=== PATIENT | male | born 1995 | race African-American/Black ===

== ENCOUNTER 2021-05-05 11:51 | Emergency (ER) | payer OTHER ==
[~2021-05-05] VITALS: Ht 180.3 cm; Wt 81.6 kg
--- NOTE | 2021-05-05 11:51 | NUR ---
PT BIB SELF C/O SI "I WANT TO JUMP OFF A BRIDGE" PT IS AAOX4, NOT IN RESPIRATORY DISTRESS, V/S STABLE, KEPT RESTED AND COMFORTABLE. SITTER AT BEDSIDE. WILL CONTINUE TO MONITOR.
--- NOTE | 2021-05-05 12:07 | NUR ---
called security for wanding
--- NOTE | 2021-05-05 12:07 | NUR ---
urine collected and sent to lab.
[2021-05-05 12:25] LABS: BASOPHILS % (AUTO) 0.5 % (0.0-2.0); EOSINOPHILS % (AUTO) 1.3 % (0.0-6.0); HEMATOCRIT 48 % (39-51); HEMOGLOBIN 15.7 g/dL (13.5-17.5); LYMPHOCYTES # (AUTO) 1.8 K/uL (0.8-4.8); LYMPHOCYTES % (AUTO) 21.5 % (20.0-44.0); MEAN CORPUSCULAR HGB CONC 33 g/dl (31.0-36.0); MEAN CORPUSCULAR VOLUME 93 fL (80-96); MONOCYTES # (AUTO) 0.6 K/uL (0.1-1.30); MONOCYTES % (AUTO) 6.6 % (2.0-12.0); NEUTROPHILS % (AUTO) 70.1 % (43.0-81.0); PLATELET COUNT (AUTO) 239 K/uL (150-450); RED BLOOD CELL COUNT(AUTO) 5.16 MIL/uL (4.5-6.0); WHITE BLOOD COUNT (AUTO) 8.6 K/uL (4.3-11.0)
[2021-05-05 12:33] LABS: BILIRUBIN,URINE Negative (NEGATIVE); COLOR,URINE YELLOW (YELLOW); LEUKOCYTE ESTERASE ,URINE Negative (NEGATIVE); NITRITE, URINE Negative (NEGATIVE); PROTEIN,URINE Negative (NEGATIVE); UGLUCOSE Negative (NEGATIVE); UROBILINOGEN,URINE 0.2 EU/dL (0.2)
[2021-05-05 12:45] LABS: ALANINE AMINOTRANSFERASE 16 U/L (12-78); ALBUMIN 4.4 g/dL (3.4-5.0); ALCOHOL, BLOOD < 3 mg/dL (0-0); ALKALINE PHOSPHATASE 104 U/L (46-116); ASPARTATE AMINOTRANSFERASE 17 U/L (15-37); BILIRUBIN,DIRECT 0.1 mg/dL (0.0-0.2); BILIRUBIN,TOTAL 0.4 mg/dL (0.2-1.0); CALCIUM, SERUM 9.3 mg/dL (8.5-10.1); CARBON DIOXIDE 30 mmol/L (21-32); CHLORIDE 102 mmol/L (98-107); CREATININE 1.1 mg/dL (0.6-1.3); GLUCOSE 94 mg/dL (74-106); POTASSIUM 3.8 mmol/L (3.5-5.1); SODIUM SERUM 141 mmol/L (136-145); UREA NITROGEN, BLOOD 12 mg/dL (7-18)
[2021-05-05 12:46] LABS: ACETAMINOPHEN < 10 ug/ml (10-30)
[2021-05-05 12:47] LABS: BACTERIA,URINE Rare /HPF (None Seen); SQUAMOUS EPITHELIAL CELL,UR 0-2 /HPF (None Seen); WBC,URINE 0-2 /HPF (0-3)
--- NOTE | 2021-05-05 14:40 | NUR ---
"Automatic Cigar Wrapper Tender consult: Automatic Cigar Wrapper Tender consult requested for suicidal ideation. Patient is a 25-year-old, male. SW met with patient at his bedside in the emergency department. Patient was alert and oriented x4. Patient was calm and watching television. Per chart, patient was brought in by self on 05/05/21, presented with suicidal ideation and stated that he wanted to jump off a bridge. Patient stated that he is currently homeless. Patient stated that he became homeless within this month. Patient reported that he has stayed in shelters in the past. Patient stated that he receives General [employer] and SSI as a source of income. Patient reported occasional substance use which includes, marijuana. SW assessed patients history of mental illness and patient stated that he has a history of Schizophrenia. Patient reported that he experiences auditory hallucinations and has experienced them while in the emergency department. Patient described auditory hallucinations as, voices telling me to go here or go there. Patient stated that he is currently experiencing suicidal and homicidal ideation. Patient reported no plan for suicidal ideation. Patient reported I want to hit this derik on the street who was so mean to me. SW offered patient homeless and mental health resources and patient accepted the resources, thanking SW. Patient signed the homeless waiver and SW filed the waiver in the patients chart. Patient requested to be referred to an inpatient psychiatric hospital for voluntary admission. SW will follow up and fax clinicals to [facility], , for review. PLAN: SW will fax clinicals to [facility] for review. SW will remain available as needed. Year-round shelters: [facility] [address], [place] [id number] ; [facility] [address] [place] [address]; [facility] [id number] [facility] [address] SPA 4 | [facility] [place] Provider: [facility] Address: [address], [address] # of Beds: 48 Population Served: [facility] Provider: [facility] Serve Address: [address] [facility] [facility], [address] # of Beds: 73 Population Served: [facility] 6 | [facility] Provider: [facility] Address: [address] [facility], [address] # of Beds: 63 Population Served: [facility] 3 | [facility] Provider: [facility] [place] Address: [address] [facility], [address] # of Beds: 75 Population Served: [facility] 8 | [facility] Provider: [facility] [place] Address: [address] [place], [address] # of Beds: 80 Population Served: [facility] S[facility] 1 | [facility] Provider: [facility] [place] Address: [address] [place] [address], [address] # of Beds: 85 Population Served: [facility] SPA 2 | [facility] Provider: [facility] Address: Confidential (please call for location) # of Beds: 52 Population Served: [facility] 4 | [facility] Provider: [facility] Address: [address] [facility], [address] # of Beds: 49 Population Served: [facility] Provider: [facility] To Serve Address: [address] [place] [address], [address] # of Beds: 27 Population Served: [facility] Hygiene: [facility]: [address] [address] ; [facility] [address] [facility] ; [facility] [address] Sah[address] Wagner . Food Resources: [place] [employer] [facility] at [facility]- [address] [facility]; Meet Each Need with Dign[facility] ([facility]) [address] [facility]; [facility] [address] [facility]; [facility] [address] [facility]. Mental Health resources provided: [facility] [address] [place] [address] ; [facility] [address] [facility] [address], [place], [place] [id number] ; [facility] [address] [place] [address] ; [facility] [address] [place], [place] [address] Healthcare Clinics: [facility] [address] [facility], [address] [place]. [place] ; [facility] [address] [facility] [address] [place] [address]; [facility] [address] [facility]. [place] [phone] Counseling--Outpatient Located Within [facility] [address] [facility], [place] [address] (Specializes in in-depth psychotherapy for emotional distress: anxiety, depression, interpersonal conflicts, life transitions, childhood abuse) PSYCHIATRIC OUTPATIENT SERVICES [facility] Partial Hospitalization and Intensive Outpatient Program (Managed Care and [place] Only) [address] [facility] [address] [facility] Partial Hospitalization and Outpatient Program [address] [place], [place] [id number] [facility] Partial Hospitalization and Outpatient Program [address] [place] [address] [facility] [address] [facility]. [address] [place], [place] [id number] [facility] Partial Hospitalization and Outpatient Program [address] [place], [place] [phone] "
--- NOTE | 2021-05-05 15:30 | NUR ---
Promotional Model note: PAUL faxed clinicals to [facility], , for review. Addendum: 05/05/21 at 1532 by GINI MILLER PENDING COVID RESULT. ED nurse staff community health to follow up with faxing result to [facility]
--- NOTE | 2021-05-05 18:47 | NUR ---
[facility]
--- NOTE | 2021-05-05 20:04 | NUR ---
WAITING TO HEAR BACK FROM [facility]
--- NOTE | 2021-05-05 21:42 | NUR ---
CALLED [facility] [phone] X [phone] [facility] REF#[id number]
--- NOTE | 2021-05-05 21:59 | NUR ---
[facility] WILL PICKUP AT MIDNIGHT PER [id number]
--- NOTE | 2021-05-05 22:14 | NUR ---
PT ACCEPTED TO [facility] UNDER [address]. [place] CALL [phone] X [phone]
--- NOTE | 2021-05-05 23:47 | NUR ---
REPORT GIVEN TO [facility] TEAM FOR [place]. AND TRANSFER REPONSIBLITIES.
--- NOTE | 2021-05-05 23:50 | NUR ---
REPORT GIVEN TO ED AT [facility]
[2021-05-05 23:59] VITALS: BP 125/76
--- NOTE | 2021-05-05 23:59 | NUR ---
PT WAS PICKED UP [facility] IN STABLE CONDITION. ALL BELONGINGS WERE PICKED UP
== END 2021-05-06 ==
LOC: ER 11:58
DX: R45.851 Suicidal ideations (principal); Z91.19 Patient's noncompliance with other medical treatment and regimen; R44.0 Auditory hallucinations
CPT/HCPCS: 36415; 80048; 80076; 80143; 80307; 80320; 81001; 85025; 87426; 99285; C9803; G0480